=== PATIENT | female | born 1965 | race Caucasian/White ===

== ENCOUNTER 2017-08-14 23:36 | Emergency (ER) | payer MEDICARE, MEDICAID ==
[~2017-08-14] VITALS: Ht 172.7 cm; Wt 108.9 kg
[~2017-08-14 23:36] MED LIST: ASPIRIN 81MG TA81 MG PO; COREG12.5 M1 PO; CYMBALTA60 MG PO; GABAPENTIN100 M1 PO; IMODIUM 2MG. CAP2 MG PO; ISOSORBIDE MONO30 MG PO; LIPITOR80 MG PO; LISINOPRIL 20MG20 MG PO; NITROGLYCERIN0.4 MG SL; PLAVIX 75MG TAB75 MG PO; RANITIDINE HCL150 MG PO; RENA-VITE RX1 TAB PO; ROPINIROLE HYDRO1 MG PO; SENSIPAR30 MG PO
[2017-08-15 00:02] VITALS: BP 153/88
--- NOTE | 2017-08-15 00:06 | Emergency Room Report ---
History of Present Illness Time Seen by MD Dominguez Presenting Problem in Triage Pt arrived:Walked Presenting Problem:HAD A JAIME CATH PLACED TODAY AT [facility]. BLEEDING AROUND SITE. 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 N Clinical Suspician of Infection? N Mental Status: 1 - Regular (Normal Baseline) Sepsis Risk:Low Sepsis Risk Have you (or family members/close friends) recently traveled outside the [place]? N If Yes, where/when: Have you had exposure to infectious disease within the past month? N TB? Other? Specify: Source patient, RN notes reviewed, family, old records Exam Limitations no limitations Comment bleeding from dialysis cather placed today Cardiac Chest Pain Chest pain indicative of cardiac No Timing/Duration this evening Severity moderate ALLERGIES Coded Allergies: acetaminophen (From DARVOCET-N 100) (I-[facility] 06/10/17) propoxyphene (From DARVOCET-N 100) ([facility]) Home Medications Reported Medications Ranitidine Hcl (Ranitidine 150MG) 150 MG PO BID CLOPIDOGREL BISULFATE (PLAVIX) 75 MG PO DAILY Gabapentin (Gabapentin 100MG) 100 MG PO TID VIT B CMPLX 3/FA/VIT C/BIOTIN (Nicolette-Bob Rx Tablet) 1 TAB PO DAILY CINACALCET HCL (Sensipar) 30 MG PO DAILY ROPINIROLE HCL (Ropinirole 1MG) 1 MG PO QHS Atorvastatin Calcium (Atorvastatin) 40 MG PO DAILY Carvedilol (Coreg) 3.25 MG PO BID ASPIRIN (Aspirin) 81 MG PO DAILY Loperamide Hcl (Loperamide) 2 MG PO Q6HP PRN DIARRHEA NITROGLYCERIN (Nitrostat) 0.4 MG SL [id number] PRN CHEST PAIN DULOXETINE HCL (Cymbalta 60MG) 60 MG PO DAILY History Medical History General CAD? Yes Angina: Yes [place]: Yes Hypertension? Yes Hyperlipidemia? Yes CHF? Yes DVT? Yes PE? No COPD? No Asthma? No Anemia? Yes GERD? Yes Gastric ulcers? No GI Bleed? Yes Hernia? No Thyroid Problems? No Hypothyroidism? No CVA? No Seizures? Yes Diabetes? Yes Insulin Dependent: No Insulin Pump: No Home FSBS? No Renal Insuffiency? Yes End Stage Renal Disease? Yes UTI? No Stones? No BPH? No GB Disease: No Nephritic Syndrome? No Asplenia? No Hepatitis? Yes Sickle Cell Disease? No Arthritis? Yes Migraines? No Cataracts? Yes Glaucoma? No MRSA? Yes HIV? No TB? No Anxiety? Yes Depression? Yes Cancer? Yes Site: LIVER More? 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 Respiratory denies cough, denies shortness of breath, denies wheezing Cardiovascular denies chest pain, denies syncope Gastrointestinal denies abdominal pain, denies diarrhea, denies vomiting Genitourinary denies: dysuria, frequency, hesitancy, hematuria. Musculoskeletal denies back pain, denies joint pain, denies joint swelling, denies neck pain Skin see HPI, denies rash, other Psychiatric/Neurological denies seizure Physical Exam Vital Signs Vital Signs Date Time Temp Pulse Resp B/P Pulse O2 O2 Flow FiO2 Ox Delivery Rate 08/14 2342 98.9 74 18 153/88 98 - WBC >12,000 or <4,000 or 10% bands? 2 or more SIRS Criteria Met? B/P:153/88 MAP:109 Creatinine >2.0? UA output<0.5ml/kg/hr for 2 hrs? Platelet count >100,000? Lactate >2.0mmol/1? INR >1.2 or PTT > than 60 sec? Evidence of Organ Dysfunction? Provider documented clinical suspician of infection? N Sepsis Criteria Count: 0 Sepsis Risk: Low Sepsis Risk General Appearance no apparent distress Eye Exam - bilateral eye PERRL, bilateral eye EOMI Ear, Nose, Throat normal ENT inspection Respiratory Status No: respiratory distress. 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 No Departure Departure Time of Disposition 0000 Disposition DC Home or Self Care(routine) Clinical Impression Primary Impression: Bleeding due to dialysis catheter placement Qualifiers: Encounter type: initial encounter Qualified Code: T82.838A - Hemorrhage due to vascular prosthetic devices, implants and grafts, initial encounter Condition STABLE Referrals GAETANO CARRILLO (Family) Patient Instructions How to Care for a Surgical Wound Additional Instructions see surg in am as planned Discharge Counseling Counseled pt/family regarding diagnosis, follow up needs ED Critical Care Critical Care No at [phone]
--- NOTE | 2017-08-15 00:06 | Emergency Room Report ---
History of Present Illness Time Seen by MD Dominguez Presenting Problem in Triage Pt arrived:Walked Presenting Problem:HAD A JAIME CATH PLACED TODAY AT [facility]. BLEEDING AROUND SITE. 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 N Clinical Suspician of Infection? N Mental Status: 1 - Regular (Normal Baseline) Sepsis Risk:Low Sepsis Risk Have you (or family members/close friends) recently traveled outside the [place]? N If Yes, where/when: Have you had exposure to infectious disease within the past month? N TB? Other? Specify: Source patient, RN notes reviewed, family, old records Exam Limitations no limitations Comment bleeding from dialysis cather placed today Cardiac Chest Pain Chest pain indicative of cardiac No Timing/Duration this evening Severity moderate ALLERGIES Coded Allergies: acetaminophen (From DARVOCET-N 100) ([facility] 06/10/17) propoxyphene (From DARVOCET-N 100) ([facility] Home Medications Reported Medications Ranitidine Hcl (Ranitidine 150MG) 150 MG PO BID CLOPIDOGREL BISULFATE (PLAVIX) 75 MG PO DAILY Gabapentin (Gabapentin 100MG) 100 MG PO TID VIT B CMPLX 3/FA/VIT C/BIOTIN (Nicolette-Bob Rx Tablet) 1 TAB PO DAILY CINACALCET HCL (Sensipar) 30 MG PO DAILY ROPINIROLE HCL (Ropinirole 1MG) 1 MG PO QHS Atorvastatin Calcium (Atorvastatin) 40 MG PO DAILY Carvedilol (Coreg) 3.25 MG PO BID ASPIRIN (Aspirin) 81 MG PO DAILY Loperamide Hcl (Loperamide) 2 MG PO Q6HP PRN DIARRHEA NITROGLYCERIN (Nitrostat) 0.4 MG SL [id number] PRN CHEST PAIN DULOXETINE HCL (Cymbalta 60MG) 60 MG PO DAILY History Medical History General CAD? Yes Angina: Yes [place]: Yes Hypertension? Yes Hyperlipidemia? Yes CHF? Yes DVT? Yes PE? No COPD? No Asthma? No Anemia? Yes GERD? Yes Gastric ulcers? No GI Bleed? Yes Hernia? No Thyroid Problems? No Hypothyroidism? No CVA? No Seizures? Yes Diabetes? Yes Insulin Dependent: No Insulin Pump: No Home FSBS? No Renal Insuffiency? Yes End Stage Renal Disease? Yes UTI? No Stones? No BPH? No GB Disease: No Nephritic Syndrome? No Asplenia? No Hepatitis? Yes Sickle Cell Disease? No Arthritis? Yes Migraines? No Cataracts? Yes Glaucoma? No MRSA? Yes HIV? No TB? No Anxiety? Yes Depression? Yes Cancer? Yes Site: LIVER More? 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 Respiratory denies cough, denies shortness of breath, denies wheezing Cardiovascular denies chest pain, denies syncope Gastrointestinal denies abdominal pain, denies diarrhea, denies vomiting Genitourinary denies: dysuria, frequency, hesitancy, hematuria. Musculoskeletal denies back pain, denies joint pain, denies joint swelling, denies neck pain Skin see HPI, denies rash, other Psychiatric/Neurological denies seizure Physical Exam Vital Signs Vital Signs Date Time Temp Pulse Resp B/P Pulse O2 O2 Flow FiO2 Ox Delivery Rate 08/14 2342 98.9 74 18 153/88 98 - WBC >12,000 or <4,000 or 10% bands? 2 or more SIRS Criteria Met? B/P:153/88 MAP:109 Creatinine >2.0? UA output<0.5ml/kg/hr for 2 hrs? Platelet count >100,000? Lactate >2.0mmol/1? INR >1.2 or PTT > than 60 sec? Evidence of Organ Dysfunction? Provider documented clinical suspician of infection? N Sepsis Criteria Count: 0 Sepsis Risk: Low Sepsis Risk General Appearance no apparent distress Eye Exam - bilateral eye PERRL, bilateral eye EOMI Ear, Nose, Throat normal ENT inspection Respiratory Status No: respiratory distress. 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 No Departure Departure Time of Disposition 0000 Disposition DC Home or Self Care(routine) Clinical Impression Primary Impression: Bleeding due to dialysis catheter placement Qualifiers: Encounter type: initial encounter Qualified Code: T82.838A - Hemorrhage due to vascular prosthetic devices, implants and grafts, initial encounter Condition STABLE Referrals GAETANO CARRILLO (Family) Patient Instructions How to Care for a Surgical Wound Additional Instructions see surg in am as planned Discharge Counseling Counseled pt/family regarding diagnosis, follow up needs ED Critical Care Critical Care No at [phone]
== END 2017-08-15 00:08 | disposition home or self-care (01) ==
LOC: ER 23:36
DX: T82.838A Hemorrhage due to vascular prosthetic devices, implants and grafts, initial encounter (principal); I10 Essential (primary) hypertension; K21.9 Gastro-esophageal reflux disease without esophagitis; E78.5 Hyperlipidemia, unspecified; E11.9 Type 2 diabetes mellitus without complications; F41.8 Other specified anxiety disorders; I25.10 Atherosclerotic heart disease of native coronary artery without angina pectoris; Z88.6 Allergy status to analgesic agent; Z79.82 Long term (current) use of aspirin

== ENCOUNTER 2017-09-27 00:56 | Emergency (ER) | payer MEDICARE, MEDICAID ==
[~2017-09-27] VITALS: Ht 172.7 cm; Wt 108.9 kg
[2017-09-27] MEDS ORDERED: CALCIUM ACETAT667 MG PO (01:11)
[2017-09-27] MEDS ORDERED: AMITRIPTYLINE 225 MG PO (01:12)
[2017-09-27] MEDS ORDERED: PAROXETINE20 MG PO (01:12)
[2017-09-27] MEDS ORDERED: TRIAMCINOLON 0.15 GM TP (01:12)
--- NOTE | 2017-09-27 01:19 | Emergency Room Report ---
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 ALSO C/O VOMITING SINCE HEAD INJURY. 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 N Clinical Suspician of Infection? N Mental Status: 1 - Regular (Normal Baseline) Sepsis Risk:Possible Sepsis Risk Have you (or family members/close friends) recently traveled outside the [place]? N If Yes, where/when: Have you had exposure to infectious disease within the past month? N TB? Other? Specify: Source patient, RN notes reviewed, family, old records Exam Limitations no limitations Comment pt with slip/trip type fall with head and neck injury but no loc and has bruising to lt lower leg with no focal neuro sx - Cardiac Chest Pain Chest pain indicative of cardiac No Timing/Duration this evening Severity moderate ALLERGIES Coded Allergies: acetaminophen (From DARVOCET-N 100) (I-[facility] 06/10/17) propoxyphene (From DARVOCET-N 100) (I-[facility] 06/10/17) Home Medications Reported Medications Ranitidine Hcl (Ranitidine 150MG) 150 MG PO BID CLOPIDOGREL BISULFATE (PLAVIX) 75 MG PO DAILY Gabapentin (Gabapentin 100MG) 100 MG PO TID VIT B CMPLX 3/FA/VIT C/BIOTIN (Nicolette-Bob Rx Tablet) 1 TAB PO DAILY CINACALCET HCL (Sensipar) 30 MG PO DAILY ROPINIROLE HCL (Ropinirole 1MG) 1 MG PO BID Atorvastatin Calcium (Atorvastatin) 40 MG PO DAILY Carvedilol (Coreg) 3.25 MG PO BID ASPIRIN (Aspirin) 81 MG PO DAILY Loperamide Hcl (Loperamide) 2 MG PO Q6HP PRN DIARRHEA NITROGLYCERIN (Nitrostat) 0.4 MG SL [id number] PRN CHEST PAIN DULOXETINE HCL (Cymbalta 60MG) 60 MG PO DAILY Calcium Acetate 5 TAB PO AC Triamcinolone Acetonide (Triamcinolon 0.1% Cr, 15GM) 1 ESTRADA TP BID PAROXETINE (Paroxetine HCl) 20 MG PO DAILY Amitriptyline Hcl (Amitriptyline) 25 MG PO QHS History Medical History General CAD? Yes Angina: Yes [place]: Yes Hypertension? Yes Hyperlipidemia? Yes CHF? Yes DVT? Yes PE? No COPD? No Asthma? No Anemia? Yes GERD? Yes Gastric ulcers? No GI Bleed? Yes Hernia? No Thyroid Problems? No Hypothyroidism? No CVA? No Seizures? Yes Diabetes? Yes Insulin Dependent: No Insulin Pump: No Home FSBS? No Renal Insuffiency? Yes End Stage Renal Disease? Yes UTI? No Stones? No BPH? No GB Disease: No Nephritic Syndrome? No Asplenia? No Hepatitis? Yes Sickle Cell Disease? No Arthritis? Yes Migraines? No Cataracts? Yes Glaucoma? No MRSA? Yes HIV? No TB? No Anxiety? Yes Depression? Yes Cancer? Yes Site: LIVER More? 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 Respiratory denies cough, denies shortness of breath, denies wheezing Cardiovascular denies chest pain, denies syncope Gastrointestinal see HPI, denies abdominal pain, denies diarrhea, nausea, denies vomiting Genitourinary denies: dysuria, frequency, hesitancy, hematuria. Musculoskeletal see HPI, denies back pain, denies joint pain, denies joint swelling, neck pain, other Skin see HPI, denies rash, other Psychiatric/Neurological denies headache, denies seizure Physical Exam Vital Signs Vital Signs Date Time Temp Pulse Resp B/P Pulse O2 O2 Flow FiO2 Ox Delivery Rate 09/27 327 76 15 175/88 97 09/274 76 15 176/80 97 09/278 98.7 130 20 179/73 90 - WBC >12,000 or <4,000 or 10% bands? 2 or more SIRS Criteria Met? B/P:176/80 MAP:108 Creatinine >2.0? UA output<0.5ml/kg/hr for 2 hrs? Platelet count >100,000? Lactate >2.0mmol/1? INR >1.2 or PTT > than 60 sec? Evidence of Organ Dysfunction? Provider documented clinical suspician of infection? N Sepsis Criteria Count: 2 Sepsis Risk: Possible Sepsis Risk General Appearance no apparent distress Eye Exam - bilateral eye PERRL, bilateral eye EOMI Ear, Nose, Throat normal ENT inspection Neck limited range of motion, tender lateral Respiratory Status No: respiratory distress. 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 No Results/Orders Orders Procedure Date/time Status DIET-NOTHING BY MOUTH 09/[address] HEAD W/O CONTRAST 09/[address] CERVICAL SPINE W/O CONT. 09/[address] SCAN REQ 09/27 105 Complete PELVIS AP ONLY 09/27 105 Active LOWER LEG-LT 09/27 105 Active CHEST-AP VIEW ONLY 09/27 105 Active XRAY/CT/US XRAY/CT/US 1 CT head, C-spine CT interpretation by discussed w/radiologist Time results known: 310 CT Results no fracture seen XRAY/CT/US 2 XRAY chest, leg, pelvis XR interpretation by reviewed by me Xray Results no fracture seen Departure Departure Time of Disposition 310 Disposition DC Home or Self Care(routine) Clinical Impression Primary Impression: Concussion Qualifiers: Encounter type: initial encounter Loss of consciousness presence/ duration: without LOC Qualified Code: S06.0X0A - Concussion without loss of consciousness, initial encounter Secondary Impressions: Cervical strain, acute Qualifiers: Encounter type: initial encounter Qualified Code: S16.1XXA - Strain of muscle, fascia and tendon at neck level, initial encounter Contusion of leg, left Qualifiers: Encounter type: initial encounter Qualified Code: S80.12XA - Contusion of left lower leg, initial encounter Condition STABLE Referrals GAETANO CARRILLO (Family) Patient Instructions DI for Concussion Additional Instructions keep dialysis appt Discharge Counseling Counseled pt/family regarding diagnosis, test results, follow up needs ED Critical Care Critical Care No at [id number]
--- NOTE | 2017-09-27 01:19 | Emergency Room Report ---
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 ALSO C/O VOMITING SINCE HEAD INJURY. 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 N Clinical Suspician of Infection? N Mental Status: 1 - Regular (Normal Baseline) Sepsis Risk:Possible Sepsis Risk Have you (or family members/close friends) recently traveled outside the [place]? N If Yes, where/when: Have you had exposure to infectious disease within the past month? N TB? Other? Specify: Source patient, RN notes reviewed, family, old records Exam Limitations no limitations Comment pt with slip/trip type fall with head and neck injury but no loc and has bruising to lt lower leg with no focal neuro sx - Cardiac Chest Pain Chest pain indicative of cardiac No Timing/Duration this evening Severity moderate ALLERGIES Coded Allergies: acetaminophen (From DARVOCET-N 100) ([facility] 06/10/17) propoxyphene (From DARVOCET-N 100) ([facility] 06/10/17) Home Medications Reported Medications Ranitidine Hcl (Ranitidine 150MG) 150 MG PO BID CLOPIDOGREL BISULFATE (PLAVIX) 75 MG PO DAILY Gabapentin (Gabapentin 100MG) 100 MG PO TID VIT B CMPLX 3/FA/VIT C/BIOTIN (Nicolette[facility] Tablet) 1 TAB PO DAILY CINACALCET HCL (Sensipar) 30 MG PO DAILY ROPINIROLE HCL (Ropinirole 1MG) 1 MG PO BID Atorvastatin Calcium (Atorvastatin) 40 MG PO DAILY Carvedilol (Coreg) 3.25 MG PO BID ASPIRIN (Aspirin) 81 MG PO DAILY Loperamide Hcl (Loperamide) 2 MG PO Q6HP PRN DIARRHEA NITROGLYCERIN (Nitrostat) 0.4 MG SL [id number] PRN CHEST PAIN DULOXETINE HCL (Cymbalta 60MG) 60 MG PO DAILY Calcium Acetate 5 TAB PO AC Triamcinolone Acetonide (Triamcinolon 0.1% Cr, 15GM) 1 ESTRADA TP BID PAROXETINE (Paroxetine HCl) 20 MG PO DAILY Amitriptyline Hcl (Amitriptyline) 25 MG PO QHS History Medical History General CAD? Yes Angina: Yes AL: Yes Hypertension? Yes Hyperlipidemia? Yes CHF? Yes DVT? Yes PE? No COPD? No Asthma? No Anemia? Yes GERD? Yes Gastric ulcers? No GI Bleed? Yes Hernia? No Thyroid Problems? No Hypothyroidism? No CVA? No Seizures? Yes Diabetes? Yes Insulin Dependent: No Insulin Pump: No Home FSBS? No Renal Insuffiency? Yes End Stage Renal Disease? Yes UTI? No Stones? No BPH? No GB Disease: No Nephritic Syndrome? No Asplenia? No Hepatitis? Yes Sickle Cell Disease? No Arthritis? Yes Migraines? No Cataracts? Yes Glaucoma? No MRSA? Yes HIV? No TB? No Anxiety? Yes Depression? Yes Cancer? Yes Site: LIVER More? 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 Respiratory denies cough, denies shortness of breath, denies wheezing Cardiovascular denies chest pain, denies syncope Gastrointestinal see HPI, denies abdominal pain, denies diarrhea, nausea, denies vomiting Genitourinary denies: dysuria, frequency, hesitancy, hematuria. Musculoskeletal see HPI, denies back pain, denies joint pain, denies joint swelling, neck pain, other Skin see HPI, denies rash, other Psychiatric/Neurological denies headache, denies seizure Physical Exam Vital Signs Vital Signs Date Time Temp Pulse Resp B/P Pulse O2 O2 Flow FiO2 Ox Delivery Rate 09/27 327 76 15 175/88 97 09/274 76 15 176/80 97 09/278 98.7 130 20 179/73 90 - WBC >12,000 or <4,000 or 10% bands? 2 or more SIRS Criteria Met? B/P:176/80 MAP:108 Creatinine >2.0? UA output<0.5ml/kg/hr for 2 hrs? Platelet count >100,000? Lactate >2.0mmol/1? INR >1.2 or PTT > than 60 sec? Evidence of Organ Dysfunction? Provider documented clinical suspician of infection? N Sepsis Criteria Count: 2 Sepsis Risk: Possible Sepsis Risk General Appearance no apparent distress Eye Exam - bilateral eye PERRL, bilateral eye EOMI Ear, Nose, Throat normal ENT inspection Neck limited range of motion, tender lateral Respiratory Status No: respiratory distress. 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 No Results/Orders Orders Procedure Date/time Status DIET-NOTHING BY MOUTH 09/[address] HEAD W/O CONTRAST 09/[address] CERVICAL SPINE W/O CONT. 09/[address] SCAN REQ 09/27 105 Complete PELVIS AP ONLY 09/27 105 Active LOWER LEG-LT 09/27 105 Active CHEST-AP VIEW ONLY 09/27 105 Active XRAY/CT/US XRAY/CT/US 1 CT head, C-spine CT interpretation by discussed w/radiologist Time results known: 310 CT Results no fracture seen XRAY/CT/US 2 XRAY chest, leg, pelvis XR interpretation by reviewed by me Xray Results no fracture seen Departure Departure Time of Disposition 310 Disposition DC Home or Self Care(routine) Clinical Impression Primary Impression: Concussion Qualifiers: Encounter type: initial encounter Loss of consciousness presence/ duration: without LOC Qualified Code: S06.0X0A - Concussion without loss of consciousness, initial encounter Secondary Impressions: Cervical strain, acute Qualifiers: Encounter type: initial encounter Qualified Code: S16.1XXA - Strain of muscle, fascia and tendon at neck level, initial encounter Contusion of leg, left Qualifiers: Encounter type: initial encounter Qualified Code: S80.12XA - Contusion of left lower leg, initial encounter Condition STABLE Referrals GAETANO CARRILLO (Family) Patient Instructions DI for Concussion Additional Instructions keep dialysis appt Discharge Counseling Counseled pt/family regarding diagnosis, test results, follow up needs ED Critical Care Critical Care No at [id number]
--- OUTSIDE RECORDS SUMMARY | 2017-09-27 01:21 | External Medical Summary Rpt | CCD ---
Author Author , LAWANDA WEBBER Address Unknown Phone [email or web address] Purpose Continuity of Care Document - through 2016 Problems Code Diagnosis DOS Provider Status M25.512 PAIN IN LEFT SHOULDER N18.6 END STAGE RENAL DISEASE R07.9 CHEST PAIN, UNSPECIFIED T82.838A HEMORRHAGE DUE TO VASCULAR PROSTH DEV/GRFT, INIT T82.868A THROMBOSIS DUE TO VASCULAR PROSTH DEV/GRFT, INIT
--- OUTSIDE RECORDS SUMMARY | 2017-09-27 01:21 | External Medical Summary Rpt | CCD ---
Author Author [employer] Organization [employer] Address Unknown Phone Unavailable Purpose Continuity of Care Document - through 2016
--- OUTSIDE RECORDS SUMMARY | 2017-09-27 01:21 | External Medical Summary Rpt | CCD ---
Author Author , LAWANDA WEBBER Address Unknown Phone [email or web address] Purpose Continuity of Care Document - through 2016 Problems Code Diagnosis DOS Provider Status M25.512 PAIN IN LEFT SHOULDER N18.6 END STAGE RENAL DISEASE R07.9 CHEST PAIN, UNSPECIFIED T82.838A HEMORRHAGE DUE TO VASCULAR PROSTH DEV/GRFT, INIT T82.868A THROMBOSIS DUE TO VASCULAR PROSTH DEV/GRFT, INIT
--- OUTSIDE RECORDS SUMMARY | 2017-09-27 01:22 | External Medical Summary Rpt | CCD ---
Demographics Preferred Language Grenadian Marital Status Unknown Gnosticist Affiliation Unknown Race Unknown Ethnic Group Unknown Author Author , LAWANAD WEBBER Address Unknown Phone [email or web address] Immunization No patient found.
--- OUTSIDE RECORDS SUMMARY | 2017-09-27 01:22 | External Medical Summary Rpt | CCD ---
Demographics Preferred Language Fijian Marital Status Unknown Tenriism Affiliation Unknown Race Unknown Ethnic Group Unknown Author Author , LAWANDA WEBBER Address Unknown Phone Immunization No patient found.
[2017-09-27 03:38] VITALS: BP 175/88
--- NOTE | 2017-09-27 04:39 | RADIOLOGY REPORT PS360 ---
CHEST-AP VIEW ONLY HISTORY: Pain following injury fall ORDERING PHYSICIAN: Amando Montaño MD PATIENT AGE: 51 years COMPARISON: 07/23/2017 FINDINGS: Cardiomegaly with pulmonary venous congestion. Right IJ vas catheter is present with the tip in region of right atrium. Coronary artery stent is present Lungs are clear. Left axillary vascular stent is present in there is a screw within the left glenoid. No obvious effusions. No acute bony anomalies. IMPRESSION: 1. CHF/plasma volume overload. 2. Otherwise negative.
--- NOTE | 2017-09-27 04:40 | RADIOLOGY REPORT PS360 ---
PELVIS AP ONLY HISTORY: Fall with injury and pain fall ORDERING PHYSICIAN: Amando Montaño MD PATIENT AGE: 51 years COMPARISON: None FINDINGS: No fracture or dislocation is evident. No significant degenerative change. No lytic or blastic change. The SI joints have an unremarkable appearance. Unremarkable soft tissues. Subcortical cystic changes present at the symphysis pubis consistent with osteitis pubis IMPRESSION: No acute finding
--- NOTE | 2017-09-27 04:41 | RADIOLOGY REPORT PS360 ---
LOWER LEG-LT HISTORY: Pain following injury fall ORDERING PHYSICIAN: Amando Montaño MD PATIENT AGE: 51 years COMPARISON: None FINDINGS: No fracture or dislocation. No lytic or blastic change. There is normal mineralization. There is an old proximal fibular shaft fracture present with callus formation. Normal alignment. There is some pretibial soft tissue swelling proximally. IMPRESSION: No acute fracture. Old fibular fracture. Soft tissue swelling
--- NOTE | 2017-09-27 04:45 | RADIOLOGY REPORT PS360 ---
CT HEAD W/O CONTRAST HISTORY: Headache, pain, contusion or hematoma following injury FALL ORDERING PHYSICIAN: Amando Montaño MD PATIENT AGE: 51 years COMPARISON: None TECHNIQUE: Axial images obtained without contrast. Brain and bone windows reviewed. FINDINGS: No midline shift, mass effect, intracranial hemorrhage, hydrocephalus, or extra-axial fluid collection is evident. The calvarium has an unremarkable appearance. No mastoid effusion. There is mild mucosal thickening of the ethmoid sinuses.. IMPRESSION: No acute intracranial findings..
--- NOTE | 2017-09-27 04:52 | RADIOLOGY REPORT PS360 ---
CT CERVICAL SPINE W/O CONT INDICATION: Neck pain following injury FALL ORDERING PHYSICIAN: Amando Montaño MD PATIENT AGE: 51 years COMPARISON: None TECHNIQUE: Axial images are obtained without contrast. Sagittal and coronal reformatted images are reviewed as well. FINDINGS: Normal alignment. No fracture or dislocation. Small anterior osteophyte at C4. No lytic or blastic change No prevertebral soft tissue swelling. Scattered small nodes are present in the neck. Upper thoracic images show a 14 x 14 mm noncalcified nodule in the right apex medially adjacent to the mediastinum. IMPRESSION: 1. No acute fracture. 2. Right apical nodule. Consider diagnostic chest CT for further evaluation.
== END 2017-09-27 03:39 | disposition home or self-care (01) ==
LOC: ER 00:56
DX: S06.0X0A Concussion without loss of consciousness, initial encounter (principal); S16.1XXA Strain of muscle, fascia and tendon at neck level, initial encounter; S80.12XA Contusion of left lower leg, initial encounter; I25.10 Atherosclerotic heart disease of native coronary artery without angina pectoris; I10 Essential (primary) hypertension; K21.9 Gastro-esophageal reflux disease without esophagitis; E11.9 Type 2 diabetes mellitus without complications; Z88.6 Allergy status to analgesic agent; R11.10 Vomiting, unspecified; W01.0XXA Fall on same level from slipping, tripping and stumbling without subsequent striking against object, initial encounter; Y92.019 Unspecified place in single-family (private) house as the place of occurrence of the external cause